=== PATIENT | male | born 1980 | race Two or more races ===

== ENCOUNTER 2017-12-22 12:01 | Observation (INO) | payer BC, OTHER ==
[~2017-12-22] VITALS: Ht 177.8 cm; Wt 99.8 kg
[2017-12-22 13:15] LABS: Basophils # (auto) 0 uL; Basophils % (auto) 0.4 % (0.0-2.0); Eosinophils # (auto) 0.1 uL; Hemoglobin 20.2 g/dL (13.5-17.5); Mean Corpuscular Volume 99.2 fL (80.0-100.0); Monocytes # (auto) 0.6 uL; Neutrophils # (auto) 4.9 uL; White Blood Cell 7.8 10^3/uL (4.4-10.8)
[2017-12-22 13:18] LABS: Eosinophils % (auto) 1.4 % (0.0-7.0); Lymphocytes # (auto) 2.2 uL; Lymphocytes % (auto) 27.8 % (10.0-50.0); Mean Corpuscular Hemoglobin 34.1 pg (28.0-32.0); Mean Corpuscular Hgb Conc. 34.4 g/dL (32.0-36.0); Monocytes % (auto) 7.2 % (0.0-12.0); Neutrophils % (auto) 63.2 % (37.0-80.0); Nucleated Red Blood Cells % 0.1 %; Platelet Count (auto) 163 10^3/uL (140-450); Red Blood Cells 5.92 10^6/uL (4.5-5.90); Red Cell Distribution Width 14.3 % (11.8-14.3)
[2017-12-22 13:19] LABS: Hematocrit 58.7 % (41.0-53.0)
[2017-12-22 13:39] LABS: Albumin 3.7 g/dL (3.4-5.0); Calcium 8.8 mg/dL (8.5-10.1); Potassium 4.5 mmol/L (3.5-5.1)
[2017-12-22 13:42] LABS: Bilirubin, Total 0.7 mg/dL (0.2-1.0); Total Protein 8.5 g/dL (6.4-8.2)
[2017-12-22 14:36] LABS: Magnesium 2.2 mg/dL (1.6-2.6)
[2017-12-22 17:25] VITALS: BP 132/88
== END 2017-12-22 17:30 | disposition home or self-care (01) | DRG 392 ==
LOC: ER 12:12 → OVERFLOW 12:13 → ER 17:29
PROVIDERS: ADMIT Family Medicine; ATTEND Family Medicine
DX: R10.9 Unspecified abdominal pain (principal); F17.210 Nicotine dependence, cigarettes, uncomplicated; K59.00 Constipation, unspecified; Z82.49 Family history of ischemic heart disease and other diseases of the circulatory system
CPT/HCPCS: 36415; 71101; 74176; 80053; 82150; 83690; 83735; 85025; 99285; G0378